=== PATIENT | male | born 1970 | race Caucasian/White ===

== ENCOUNTER → 2018-01-26 06:47 | Outpatient (CLI) | payer OTHER, SELFPAY ==
--- NOTE | 2018-01-27 08:12 | PFTCOMP_ITS ---
COMPLETE PULMONARY FUNCTION TEST INTERPRETATION Brief HPI: Patient is a 47 year old male, currently under the care of Dr. Cornell, who presents to [facility] for complete pulmonary function tests secondary to diagnosis of history of allergies. Respiratory therapist reports good effort and reproducible results. Interpretation: Forced expiration spirometry shows no large airways obstructive ventilatory defect with an FEV1 of 72% predicted. There is no significant bronchodilator response by ATS criteria. Spirograms are of good quality and plateau normally. The respiratory flow volume loop shows a normal pattern. Lung volumes by body plethysmography show a decreased total lung capacity at 5.72 L, 81% predicted. All other lung volumes are reduced symmetrically. Diffusion capacity by carbon monoxide is normal at 86% predicted. The airway resistance is normal. No previous pulmonary function tests were available for review. Impression: Mild restrictive ventilatory defect without significant reduction diffusing capacity consistent with musculoskeletal limitation.
== END ==
PROVIDERS: Family Provider Family Medicine; PCP Family Medicine; Visit Provider Family Medicine
DX: R05 Cough (principal)
CPT/HCPCS: 94060; 94726; 94729

== ENCOUNTER → 2018-03-31 20:19 | Outpatient (CLI) | payer OTHER, SELFPAY | PROVIDERS: Family Provider Family Medicine; PCP Family Medicine; Visit Provider Family Medicine | DX: G47.10 Hypersomnia, unspecified (principal) | CPT/HCPCS: 95810 ==

== ENCOUNTER → 2018-08-10 20:21 | Outpatient (CLI) | payer OTHER, SELFPAY ==
[2018-07-20 08:36] VITALS: BMI 32.8
[2018-08-10] MEDS: Zolpidem Tartrate 5 MG Tablet PO (21:10)
--- OUTSIDE RECORDS SUMMARY | 2018-09-26 22:41 | XMS RPT_ITS ---
:1970 Author Organization OHIP Care Team Providers Name Role Phone Julianne Almaraz Attending Unavailable Chang Cornell Primary Care Unavailable Julianne Almaraz Attending Unavailable Chang Cornell Referring Unavailable Aneta, Chang Attending Unavailable Aneta, Chang Primary Care Unavailable Chang Cornell Referring Unavailable Mati, Michael Attending Unavailable Aneta, Chang Referring Unavailable Aneta, Chang Attending Unavailable Aneta, Chang Primary Care Unavailable Aneta, Chang Attending Unavailable Aneta, Chang Primary Care Unavailable Julianne Almaraz Attending Unavailable Aneta, Chang Referring Unavailable PROBLEMS PROBLEMS DATE TYPE CONDITION / CODE ATTENDING STATUS SOURCE 08/10/2018 Unknown G47.33 - Almaraz, Kindra [place] Obstructive sleep Julianne [facility] (adult[facility] Hospital (pediatric) / Repository G47.33(ICD-10) 02/09/2018 Unknown R05 - Cough / MatiMichael Active [place] R05(ICD-10) Repository PROCEDURES PROCEDURES No Procedure Records FoundRESULTS RESULTS PULMONARY VISIT REPORT Observed: 09/02/2018 Status: F Source: [place] 1:09 PM [facility] RE[facility]IT[facility] Pulmonary Medicine of [address] [place] [address] OFFICE VISIT Date of Service: 09/02/18 MR#: [id number] Acct: [id number] Name: MARY JANE MEZA Rep #: [id number] : 1970 Provider: Julianne Almaraz Age/Sex: 47/M [place] [facility] [place] Status: Signed Assessment AND Plan 1. RONAK (obstructive sleep apnea) G47.33 Plan Patient is using and benefiting from Pap therapy. No indication for titration study at this time. Continue to encourage weight loss. Contact the office for any new or worsening symptoms in the meantime. Follow-up is as scheduled. 2. Obesity (BMI 30.0-34.9) E66.9 Plan Continue to encourage weight loss. 3. PND (post-nasal drip) R09.82 Plan New. Add [id number] Flonase 2 sprays each nostril 1 hour before bedtime. Hope that this will decrease his postnasal drip and therefore improve his frequent nonproductive cough. Follow-up with Dr. Thorne as previously scheduled. Contact the office with any new or worsening symptoms. Plan Detail Other Medications New: HPI 6 wk FU: Chief Complaint: Daytime hypersomnia HPI Comments Details: This is a 47 year old M, here to follow up for sleep apnea. Current use of pressure support therapy is on average of 7 hours per night with current settings of 14/10 [id number] a backup respiratory rate of 10 breaths/min. Last sleep study was completed on August 10, 2018. It noted a PLMS index of 16.5 events per hour. Suggested that the patient be treated with a BiPAP of 14/10 with a backup rate of 10. MARY JANE denies any daytime somnolence, dry mouth in the morning, nocturia, snoring through the mask, morning headaches or difficulty with mask leaks. He has only been on therapy for 4 days but has already noticed a difference, he is feeling rested and refreshed. MARY JANE reports feeling rested in the morning and is benefitting from current therapy. Compliance report was reviewed and shows 100% compliance since set up, average use is 7 hours nightly, AHI is controlled at an average of 2.7 events per hour and leaks do not appear to be a problem. Denies any shortness of breath. He does have a frequent nonproductive cough, denies any sputum production or hemoptysis. He denies any fever, chills or body aches. He denies any wheezing, chest tightness, chest pain or palpitations. He did add Zyrtec which helped with the sputum production he was previously experiencing but did not completely resolve the cough. Intake Vital Signs09/02/18 Height 5 ft 11 in 09/02/18 Weight: 235 lb Intake Visit Reasons: 6 wk FU [facility] [place] Vendor: RICH Accompanied by: Self Allergies lisinopril Adverse Reaction (Mild, Verified 09/02/18 11:58) Cough Penicillins Adverse Reaction (Mild, Verified 09/02/18 11:58) Itching Medications amlodipine 5 mg tablet 5 mg PO DAILY 07/20/18 [History Confirmed 09/02/18] cyclobenzaprine 10 mg tablet 10 mg PO HS tab 07/20/18 [History Confirmed 09/02/18] triamcinolone acetonide 55 mcg nasal spray aerosol 2 spray INTRANASAL DAILY 07/20/18 [History Confirmed 09/02/18] cetirizine 10 mg capsule 10 mg PO DAILY 09/02/18 [History Confirmed 09/02/18] [facility] Medical History Carpal tunnel syndrome, bilateral (Chronic) Claustrophobia (Chronic) Essential (primary) hypertension (Chronic) GERD (gastroesophageal reflux disease) (Chronic) Nocturnal hypoxia (Chronic) RONAK (obstructive sleep apnea) (Chronic) TMJ syndrome (Chronic) Surgical History History of dental surgery (Resolved) History of tonsillectomy (Resolved) Family History Father Colon cancer Grandfather Colon cancer Grandmother COPD (chronic obstructive pulmonary disease) Social History Smoking Status: Never smoker alcohol intake: never substance use type: does not use Review of Systems Const CONSTITUTIONAL: Negative anorexia, body ache, chills, daytime sleepiness, fever(s), night sweats, oral thrush, stops breathing during sleep, weight loss, sleeping in chair, fatigue, weight loss, weight gain, frequent colds, seasonal allergies, other, headache(s) or orthopnea EETM Ear Nose Throat Mouth: Positive hearing normal and post nasal drip; negative hard of hearing, hoarseness, dry mouth in morning, change in vision, itchy eyes, eye pain, swallowing Difficulty, ear pain, nose bleed, headache(s), mouth pain, nasal congestion, nasal discharge, sinus pain, sinus pressure, sore throat or other Cardio Cardiovascular: Negative chest pain, chest pain at rest, chest pain with activity, irregular heart rhythm, edema, shortness of breath when lying down, palpitations, murmur or other Resp Respiratory: Positive as per HPI and cough cough: Positive non-productive (X2 weeks ); negative shortness of breath, pain with cough, wheezing, chest congestion, chest tightness, pain on inspiration, inhalers, increase use of rescue inhalers, snoring, apnea or other Gastro Gastrointestional: Negative bloody stools, change in appetite, difficulty swallowing, reflux, hematemesis, melena stool, loose stool, constipation or other Genitourinary: Negative blood in urine, nocturia, pain with urination or other Musc Musculoskeletal: Negative body pain, back pain, neck pain or other Skin/Breast Skin/Breast: Negative dry skin, itching, rash, unusual bruising, breast lump or other Neuro Neurological: Negative restless legs, confusion, weakness or other Psych Psychocological: Negative abnormal sleep pattern, anxiety, thoughts of hurting self/others, hopelessness or other Lymph Lymphatic: Negative easy bleeding, easy bruising, swollen lymph nodes or other Exam Const Constitutional: Positive conversant, cooperative, in no acute respiratory distress, healthy appearing, well developed, well nourished and good hygiene Head Head: Positive normocephalic and atraumatic; negative cyanosis of lips/distal nose Eyes Eye: Positive clear conjunctiva; negative nystagmus or scleral abnormality Ears Ear: Positive hearing normal and external ears normal; negative hard of hearing Nose Nose: Positive external nose normal and no nasal discharge; negative epistaxis Mouth Mouth: Positive post nasal drip, oral mucosae normal, no lesions, good dentition and crowded posterior oropharynx; negative malodorous breath or oral thrush present Mallampati Score: III: Mallampati Score Neck Neck: Positive normal visual inspection, full ROM and trachea midline; negative lymphadenopathy, JVD or tender Chest Wall Chest: Positive normal inspection of the chest and symmetric chest movement; negative increased A/P diameter Resp lung sounds: Positive clear to auscultation, good air exchange, normal expiratory time and normal respiratory effort; negative diminished, wheezes, rhonchi, rales, dullness to percussion or wheeze present on forced exhalation Cardio Cardiac: Positive regular rate, regular rhythm, S1 normal and S2 normal; negative murmur GI GI: Positive normal to inspection; negative distended Genitourinary: Positive deferred Musc Musculoskeletal: Positive steady gait and ROM normal; negative kyphosis or scoliosis Skin Pulmonary Skin Exam: Positive intact; negative rash Pulses Pulse: Yes pulses normal x4 extremities Extremities Extremities: Yes capillary refill normal, No clubbing, No cyanosis, No edema Neuro Neurologic: Yes conversant, Yes no focal neuro deficits, Yes normal concentration, Yes understands questions, Yes cooperative, Yes normal cognition, Yes normal coordination, No tremor Lymph Lymphatic: No lymphadenopathy, No tenderness, No cervical adenopathy Psych Appearance: Positive grossly normal, eye contact and well kempt Mental Status: Positive mental status grossly normal Mood: Positive congruent mood Affect: Positive normal affect Coding Level of Care Code Off vis,est,level 4 Diagnoses RONAK (obstructive sleep apnea) G47.33 Obesity (BMI 30.0-34.9) E66.9 PND (post-nasal drip) R09.82 09/02/18 1309 <Electronically signed by Julianne Almaraz [employer]> Date Julianne Almaraz [employer] Cosigner Signature: Date (if applicable) CC: Chang Cornell DO CBC W/DIFF, AUTOMATED Collected: 09/01/2018 Status: F Source: [place] 8:06 AM [facility] REPOSITORY TYPE CODE TESTS RESULT OUT OF RANGE REFERENCE UNITS LAB L100.1000 4.4-11.0 K/mm3 Normal WBC 6.3 LAB L100.1200 4.6-6.2 M/mm3 Normal RBC 5.20 LAB L100.1300 13.0-16.5 g/dl Normal HGB 15.8 LAB L100.1400 40-54 % Normal HCT 48.1 LAB L100.1500 80-94 fL Normal MCV 92.5 LAB L100.1600 27.0-32.0 pg Normal MCH 30.4 LAB L100.1700 32-36 g/gl Normal MCHC 32.8 LAB L100.1810 11.6-14.6 % Normal RDW CV 13.3 LAB L100.1820 35.1-43.9 fl High RDW SD 45.0 LAB L100.1900 150-450 K/mm3 Normal PLT 213 LAB L100.2000 6.2-12.0 fl Normal MPV 9.5 LAB L100.2100 47-70 % Low NEUT% 45.1 LAB L100.2200 19-41 % High LY% 41.8 LAB L100.2300 0-10 % Normal MONO% 9.7 LAB L100.2400 0-5 % Normal EO% 2.8 LAB L100.2500 0-1 % Normal BASO% 0.3 LAB L100.2550 0.0-0.9 % Normal IM GRAN % 0.300 Result Comment: IG% - Immature Granulocytes (promyelocytes, myelocytes and metamyelocytes) > 1% indicates that a LEFT SHIFT is Present. LAB L100.2620 2.0-7.7 X10 3/uL Normal Absolute Neut 2.9 LAB L100.2720 0.83-4.51 X10 3/ul Normal Absolute Lymph 2.64 Performed By: #### L100.0100 #### [facility] [address] [place], [address] COMPREHENSIVE METABOLIC Collected: 09/01/2018 Status: F Source: [place] 8:06 AM [facility] REPOSITORY TYPE CODE TESTS RESULT OUT OF RANGE REFERENCE UNITS LAB L501.0100 74-106 mg/dL Normal GLU 91 Result Comment: Please note revised GLUCOSE reference range effective 2017. LAB L501.1000 7-18 mg/dL Normal BUN 12 LAB L501.1100 0.70-1.30 mg/dL Normal CREAT,SERUM 1.07 Result Comment: The validity of the calculated GFR AND GFRAA in patients over 70 years has not been determined. Clinical correlation is essential. LAB L501.1110 >60 mL/min Normal EST GFR 78 Result Comment: Non- GFR Calc LAB L501.1115 >60 mL/min Normal EST GFR - AA 95 Result Comment: GFR Calc LAB L501.1300 10-20 RATIO Normal BUN/CRE 11.2 LAB L501.1500 6.4-8.2 g/dL T Normal PROT 7.5 LAB L501.1800 3.2-5.0 g/dL Normal ALB 4.0 LAB L501.1950 2.2-4.2 g/dL Normal GLOB 3.5 LAB L501.2000 0.9-2.4 RATIO Normal A/G 1.1 LAB L501.2200 8.5-10.1 mg/dL Low CA 8.4 LAB L501.4100 15-37 U/L Low AST 12 LAB L501.4305 45-117 U/L Normal ALK P 63 LAB L501.4405 16-61 U/L Normal ALT 34 LAB L501.4600 0.20-1.00 mg/dL T Normal BILI 0.40 LAB L501.5300 136-145 mmol/L NA Normal 139 LAB L501.5600 3.5-5.1 mmol/L K Normal 4.0 LAB L501.5900 98-107 mmol/L CL Normal 105 LAB L501.6100 21.0-32.0 mmol/L Normal CO2 27.0 LAB L501.6200 5-15 Normal GAP 7 Performed By: #### L500.4050, L500.4100 #### [facility] [address] [place], [address] LIPID PROFILE Collected: 09/01/2018 Status: F Source: [place] 8:06 AM [facility] REPOSITORY TYPE CODE TESTS RESULT OUT OF RANGE REFERENCE UNITS LAB L501.4900 200 mg/dL Normal CHOL 193 Result Comment: <200 mg/dL Desirable 200-240 mg/dL Borderline >240 mg/dL High Risk LAB L501.5000 mg/dL Normal TRIG 170 Result Comment: The drugs N-Acetylcysteine and Metamizole may falsely depress this assay. Serum Triglycerides Reference Interval Normal <150 mg/dL Borderline high 150 - 199 mg/dL High 200 - 499 mg/dL Very High > or = 500 mg/dL LAB L501.6400 mg/dL Low HDL 39 Result Comment: The drugs N-Acetylcysteine and Metamizole may falsely depress this assay. Reference Range HDL <40 mg/dL Low HDL Cholesterol HDL >or= 60 mg/dL High HDL Cholesterol LAB L501.6500 0-130 mg/dL Normal LDL 120 LAB L501.6600 5-40 mg/dL Normal VLDL 34 Performed By: #### L500.4050, L500.4100 #### [facility] [address] [place], [place], [address] PULMONARY VISIT REPORT Observed: 07/20/2018 Status: F Source: [place] 9:50 AM [facility] REPOSITORY [facility] [place] [id number] [place] [address] OFFICE VISIT Date of Service: 07/20/18 MR#: [id number] Acct: [id number] Name: SUSANAMARY JANE Pia Rep #: [id number] : 1970 Provider: Julianne Almaraz Age/Sex: 47/M [place] [facility] [place] Status: Signed Assessment AND Plan 1. RONAK (obstructive sleep apnea) G47.33 Plan New. Lengthy discussion about the pathophysiology of obstructive sleep apnea, risks of untreated sleep apnea and the benefits of treatment. The patient is agreeable to a titration study. Educated him that initially the goal will be to wear the device at least 4 hours nightly, but ultimately should be 1 any time spent sleeping. Encouraged him to contact the office with any difficulties acclimating to Pap therapy. Follow-up in 6 weeks with myself, follow-up with Dr. Thorne in 4 months. Orders Orders: 2. Hypertension, unspecified type I10 Plan Defer management to PCP. Discussed relationship between untreated sleep apnea and hypertension. Plan Detail Other Medications New: Follow Up 6 Weeks (CSM) 4 Months (BWA) HPI RONAK: Chief Complaint: Daytime hypersomnia HPI Comments Details: This patient presents to the office today for initial consultation regarding concern for obstructive sleep apnea. He is ambulatory and currently in room air. He reports that he was diagnosed with sleep apnea approximately 10 years ago and attempted CPAP therapy for several months. He had difficulty acclimating to the Pap mask and pressure. He reports that he deals with claustrophobia when attempting to wear the mask. He is currently experiencing persistent daytime hypersomnia, reports that he is known for falling asleep easily when sitting still. He currently snores and has had witnessed episodes of apnea he denies any episodes of nocturia apparently he does not feel rested upon arising in the morning. He naps 1-2 times daily. He has recently began to notice that he feels short of breath when climbing stairs. He denies any chest pain or palpitations. He denies any lower extremity edema. He denies any cough, sputum production or hemoptysis. He is never been a smoker, has never been diagnosed with asthma or COPD. He is never been treated with any inhalers. He currently works as an cloud engineer and reports difficulty with daytime fatigue when sitting still at his desk. Polysomnogram completed on March 31, 2018 interpreted as showing an overall AHI of 65.6 events per hour, noted to be significantly higher in the REM stage of sleep at 77.3 events per hour, in the supine position noted to be 55.9 events per hour. Interpretation is severe obstructive sleep apnea with nocturnal hypoxia and a CPap titration study was recommended. Intake Vital Signs07/20/18 Height 5 ft 11 in 07/20/18 Weight: 235 lb Intake Visit Reasons: RONAK Lap Polisher Required: No Accompanied by: Self Is patient in pain?: No Allergies lisinopril Adverse Reaction (Mild, Verified 07/20/18 07:22) Cough Penicillins Adverse Reaction (Mild, Verified 07/20/18 07:22) Itching Medications amlodipine 5 mg tablet 5 mg PO DAILY 07/20/18 [History Confirmed 07/20/18] cyclobenzaprine 10 mg tablet 10 mg PO HS tab 07/20/18 [History Confirmed 07/20/18] triamcinolone acetonide 55 mcg nasal spray aerosol 2 spray INTRANASAL DAILY 07/20/18 [History Confirmed 07/20/18] [facility] Medical History Carpal tunnel syndrome, bilateral (Chronic) Claustrophobia (Chronic) Essential (primary) hypertension (Chronic) GERD (gastroesophageal reflux disease) (Chronic) Nocturnal hypoxia (Chronic) RONAK (obstructive sleep apnea) (Chronic) TMJ syndrome (Chronic) Surgical History History of dental surgery (Resolved) History of tonsillectomy (Resolved) Family History Father Colon cancer Grandfather Colon cancer Grandmother COPD (chronic obstructive pulmonary disease) Social History Smoking Status: Never smoker alcohol intake: never substance use type: does not use Review of Systems Const CONSTITUTIONAL: Negative anorexia, body ache, chills, daytime sleepiness, fever(s), night sweats, oral thrush, stops breathing during sleep, weight loss, sleeping in chair, fatigue, weight loss, weight gain, frequent colds, seasonal allergies, other, headache(s) or orthopnea EETM Ear Nose Throat Mouth: Positive hearing normal; negative hard of hearing, hoarseness, dry mouth in morning, change in vision, itchy eyes, eye pain, swallowing Difficulty, ear pain, nose bleed, headache(s), mouth pain, nasal congestion, nasal discharge, post nasal drip, sinus pain, sinus pressure, sore throat or other Cardio Cardiovascular: Negative chest pain, chest pain at rest, chest pain with activity, irregular heart rhythm, edema, shortness of breath when lying down, palpitations, murmur or other Resp Respiratory: Positive as per HPI; negative shortness of breath, pain with cough, wheezing, chest congestion, cough, chest tightness, pain on inspiration, inhalers, increase use of rescue inhalers, snoring, apnea or other Gastro Gastrointestional: Negative bloody stools, change in appetite, difficulty swallowing, reflux, hematemesis, melena stool, loose stool, constipation or other Genitourinary: Negative blood in urine, nocturia, pain with urination or other Musc Musculoskeletal: Negative body pain, back pain, neck pain or other Skin/Breast Skin/Breast: Negative dry skin, itching, rash, unusual bruising, breast lump or other Neuro Neurological: Negative restless legs, confusion, weakness or other Psych Psychocological: Negative abnormal sleep pattern, anxiety, thoughts of hurting self/others, hopelessness or other Lymph Lymphatic: Negative easy bleeding, easy bruising, swollen lymph nodes or other Exam Const Constitutional: Positive conversant, cooperative, in no acute respiratory distress, healthy appearing, well developed, well nourished and good hygiene Head Head: Positive normocephalic and atraumatic; negative cyanosis of lips/distal nose Eyes Eye: Positive clear conjunctiva; negative nystagmus or scleral abnormality Ears Ear: Positive hearing normal and external ears normal; negative hard of hearing Nose Nose: Positive external nose normal and no nasal discharge; negative epistaxis Mouth Mouth: Positive oral mucosae normal, no lesions, good dentition and crowded posterior oropharynx; negative post nasal drip, malodorous breath or oral thrush present Mallampati Score: III: Mallampati Score Neck Neck: Positive normal visual inspection, full ROM and trachea midline; negative lymphadenopathy, JVD or tender Chest Wall Chest: Positive normal inspection of the chest and symmetric chest movement; negative increased A/P diameter Resp lung sounds: Positive clear to auscultation, good air exchange, normal expiratory time and normal respiratory effort; negative diminished, wheezes, rhonchi, rales, dullness to percussion or wheeze present on forced exhalation Cardio Cardiac: Positive regular rate, regular rhythm, S1 normal and S2 normal; negative murmur GI GI: Positive normal to inspection; negative distended Genitourinary: Positive deferred Musc Musculoskeletal: Positive steady gait and ROM normal; negative kyphosis or scoliosis Skin Pulmonary Skin Exam: Positive intact; negative rash Pulses Pulse: Yes pulses normal x4 extremities Extremities Extremities: Yes capillary refill normal, No clubbing, No cyanosis, No edema Neuro Neurologic: Yes conversant, Yes no focal neuro deficits, Yes normal concentration, Yes understands questions, Yes cooperative, Yes normal cognition, Yes normal coordination Lymph Lymphatic: No lymphadenopathy, No tenderness, No cervical adenopathy Psych Appearance: Positive grossly normal, eye contact and well kempt Mental Status: Positive mental status grossly normal Mood: Positive congruent mood Affect: Positive normal affect Coding Level of Care Code Off vis,new,level 4 Diagnoses RONAK (obstructive sleep apnea) G47.33 Hypertension, unspecified type I10 Hypertension type: unspecified 07/20/18 0950 <Electronically signed by Julianne BALLC> Date Julianne Almaraz NP-C Cosigner Signature: Date (if applicable) CC: Chang Cornell DO PROGRESS Observed: 04/02/2018 Status: COMPLETED [place]: [place] 11:33 AM [facility] [place] [facility] ID: [id number] Author: Farhad Winchester Service: (none) Author Type: Physician Type: Progress Notes Filed: 04/02/2018 1:48 PM Note Text: Patient presents with: Laceration: LT thumb laceration HPI: Cut left thumb with a pocket knife this morning. He had bleeding. Rinsed over the thumb with water. Last tetanus booster 2007. MEDICATIONS: amLODIPine (NORVASC) 5 mg tablet Take 5 mg by mouth once daily. ALLERGIES: ALLERGIES Allergen Reactions - Penicillins Itching VITALS: BP 130/88 Pulse 95 Temp 36.8 ?C (98.3 ?F) (Tympanic) Wt 104.3 kg (230 lb) SpO2 98% BMI 32.08 kg/m? PE: Pleasant, in no acute distress. Thumb: Left. 1.5cm laceration on the dorsal distal phalange. Procedure: Site cleansed with Hibiclens and saline on gauze. Rinsed with tap water. Pressure applied to stop bleeding. Exofin skin adhesive applied in 2 layers. ASSESSMENT/PLAN: 1. Laceration of left thumb without foreign body without damage to nail, initial encounter - ICD9: 883.0, ICD10: S61.012A (primary diagnosis) 2. Need for vaccination - ICD9: V05.9, ICD10: Z23 Wound care instructions reviewed. - TDAP VACCINE AGE 7+ IM Farhad Winchester MD CNOV Observed: 04/02/2018 Status: COMPLETED Source: [place] 10:45 AM [facility] [place] Office Visit (WSTR) MARY JANE MEZA ([id number]) 1970 M Date Time Provider Department 04/02/18 10:45 AM [facility] [place] [facility] During your visit today, we recorded the following information about you: Temperature Pulse Blood pressure Weight 98.3 degrees 95/minute 130/88 104.3 kg Farhad Winchester MD 04/02/2018 1:48 PM Signed Patient presents with: Laceration: LT thumb laceration HPI: Cut left thumb with a pocket knife this morning. He had bleeding. Rinsed over the thumb with water. Last tetanus booster 2007. MEDICATIONS: amLODIPine (NORVASC) 5 mg tablet Take 5 mg by mouth once daily. ALLERGIES: ALLERGIES Allergen Reactions - Penicillins Itching VITALS: BP 130/88 Pulse 95 Temp 36.8 ?C (98.3 ?F) (Tympanic) Wt 104.3 kg (230 lb) SpO2 98% BMI 32.08 kg/m? PE: Pleasant, in no acute distress. Thumb: Left. 1.5cm laceration on the dorsal distal phalange. Procedure: Site cleansed with Hibiclens and saline on gauze. Rinsed with tap water. Pressure applied to stop bleeding. Exofin skin adhesive applied in 2 layers. ASSESSMENT/PLAN: 1. Laceration of left thumb without foreign body without damage to nail, initial encounter - ICD9: 883.0, ICD10: S61.012A (primary diagnosis) 2. Need for vaccination - ICD9: V05.9, ICD10: Z23 Wound care instructions reviewed. - TDAP VACCINE AGE 7+ IM Farhad Winchester MD Referring Provider: SELF [200] Allergies As of Date: 04/02/2018 Noted Allergy Reaction PENICILLINS 08/24/2007 9 - Itching Date Reviewed: 04/02/2018 Reviewed by: Alberta Rowe Ma - Fully Assessed Reason for Visit: Laceration [1747] Cmt: LT thumb laceration Primary Visit Diagnosis:Laceration of left thumb without foreign body without damage to nail, initial encounter [S61.012A] Other Visit Diagnosis:Need for vaccination [Z23] Order(s):TDAP VACCINE AGE 7+ IM [[id number]] Order #: [id number] Prescriptions as of 04/02/2018 Sig: AMLODIPINE 5 MG TABLET Take 5 mg by mouth once daily. Problem List As Of Date 04/02/2018 Noted Resolved Abdominal pain [R10.9] Non morbid obesity due to excess calories [E66.*INVALID FOR*03/18/2016 Family history of colon cancer [Z80.0] INVALID FOR* Irritable bowel syndrome with diarrhea [K58.0] INVALID FOR* Medications Discontinued During This Encounter mupirocin (BACTROBAN) 2 % ointment 1 Tu* 0 03/23/2016 04/02/2018 Class: Print RX Route: TOPICAL Sig: Apply 1 application to affected area once daily. Patient not taking: Reported on 04/02/2018 Disc: Course of therapy completed Encounter Status:Closed by FARHAD WINCHESTER MD on 04/02/18 PULMONARY FUNCTION Observed: 01/27/2018 Status: F Source: [place] REPORT COMP 8:12 AM [facility] REPOSITORY [facility] Pulmonary Services/Neurology [address] [place] [address] MR#: [id number] Acct: [id number] Name: SUSANAMARY JANE Pia Rep #: [id number] : 1970 47 From: Michael Thorne MD Referring Dr: Chang Cornell DO Status: REG CLI Ordering Dr: Date: Location: PSN Sex: M C COMPLETE PULMONARY FUNCTION TEST INTERPRETATION Brief HPI: Patient is a 47 year old male, currently under the care of Dr. Cornell, who presents to [facility] for complete pulmonary function tests secondary to diagnosis of history of allergies. Respiratory therapist reports good effort and reproducible results. Interpretation: Forced expiration spirometry shows no large airways obstructive ventilatory defect with an FEV1 of 72% predicted. There is no significant bronchodilator response by ATS criteria. Spirograms are of good quality and plateau normally. The respiratory flow volume loop shows a normal pattern. Lung volumes by body plethysmography show a decreased total lung capacity at 5.72 L, 81% predicted. All other lung volumes are reduced symmetrically. Diffusion capacity by carbon monoxide is normal at 86% predicted. The airway resistance is normal. No previous pulmonary function tests were available for review. Impression: Mild restrictive ventilatory defect without significant reduction diffusing capacity consistent with musculoskeletal limitation. 01/27/18811 <Electronically signed by Michael Thorne MD> Date Michael Thorne MD CC: Michael Thorne MD; Chang Cornell DO Date Dictated: 01/27/18809 Date Transcribed: 01/27/18809 Care Technician: JUAN Signed ALLERGIES ALLERGIES DATE TYPE / CODE NAME / CODE REACTION SEVERITY SOURCE 09/02/2018 Drug Penicillins/[id number] Itching [place] Allergy/416 0476(RXNORM) [facility]ly [facility] 237523([facility] CT) Repository 09/02/2018 Drug lisinopril/[id number] cough [place] Allergy/416 658(RXNORM) Formerly [facility] 643267([facility] ED CT) Repository 08/24/2007 Drug PENICILLINS ITCHING [facility] Class/[address] [place] 1003(SNOMED Repository CT) ENCOUNTERS ENCOUNTERS ADMIT/DISCHARGE ACCOUNT ADMITTING ENCOUNTER LOCATION SOURCE NUMBER CLASS 09/02/2018/09/02/19 [id number] Ambulatory BMSBuilding:B [place] 19 MS.PMW Repository 09/01/[id number] [facility] ing:LAB.FUTREBECCA Repository E 08/10/[id number] [facility] ing:SL Repository 07/20/2018/07/20/20 [id number] Ambulatory BMSBuilding:B [address] 18 MS.PMW Repository 04/02/2018/04/04/20 [id number] Ambulatory [address] Repository 03/31/[id number] [facility] ing:SL Repository 01/27/2018 [id number] Ambulatory BMSBuilding:W [place] [facility] Repository 01/26/[id number] [facility] ing:PSN Repository PAYERS PAYERS ENCOUNTER GUARANTOR PAYER SUBSCRIBER SOURCE 09/02/2018 MARY JANE Palacio Primary MARY JANE Estrada [id number] Insurance:AULTCAREPol WRIGHTDOB: [facility] icy Number: [id number] [place] [id number] Repository [address]Rly: 330) Date:9370-22-58PL [phone] () [address], [place] [address]YJ: 09/02/2018 Secondary NOT GIVENUNK [place] Insurance:SELF PAY [facility] Number: Effective Repository Date:2018-08-31 09/01/2018 MARY JANE Palacio Primary MARY JANE Estrada [id number] Insurance:AULTCAREPol [facility] Number: [id number] [place], [place] [id number] Repository [address]Dub: (330) Date:5944-54-80BH [phone] () [address], [place] [address]TQ: 09/01/2018 Secondary NOT GIVENUNK [place] Insurance:SELF PAY [facility] Number: Effective Repository Date:2018-03-04 08/10/2018 MARY JANE Palacio Primary MARY JANE Estrada [id number] Insurance:AULTCAREPol WRIGHTDOB: [facility] Number: [id number] [place] [id number] Repository [address]Ibn: (330) Date:7635-91-80LC [phone] () [address] [address]LY: 08/10/2018 Secondary NOT GIVENUNK Sean Insurance:SELF PAY [facility]: Effective Repository Date:2018-07-22 07/20/2018 MARY JANE Palacio Primary MARY JANE Estrada [id number] Insurance:AULTCAREPol WRIGHTDOB: [facility] icy Number: [id number] [place], [place] [id number] Repository [address]Xbj: (330) Date:9442-20-17DE [phone] () [address], [place] [address]XT: 07/20/2018 Secondary NOT GIVENUNK [place] Insurance:SELF PAY [facility] Number: Effective Repository Date:2018-07-13 03/31/2018 Mary Jane Palacio Primary Mary Jane Estrada [id number] Insurance:AULTCAREPol WrightDOB: Community [place] icy Number: [id number] [place], [place] [id number] Repository [address]Kxc: (330) Date:2693-25-54NQ [phone] () [address] [place] [address]HY: 03/31/2018 Secondary NOT GIVENUNK [place] Insurance:SELF PAY [facility] Number: Effective Repository Date:2018-03-17 01/27/2018 Mary Jane Palacio Primary Mary Jane Estrada [id number] Insurance:AULTCAREPol WrightDOB: Community [facility] icy Number: [id number] [place], [place] [id number] Repository [address]Dol: (330) Date:8667-89-42HV [phone] () [address], [place] [address]OV: 01/27/2018 Secondary NOT GIVENUNK [place] Insurance:SELF PAY [facility] Number: Effective Repository Date:2018-01-27 01/26/2018 Mary Jane Palacio Primary Mary Jane Estrada [id number] Insurance:AULTCAREPol WrightDOB: Community [place] icy Number: [id number] [place], [place] [id number] Repository [address]Fnk: (330) Date:6829-42-78WT [phone] ( [address], [place] [address]PB: 01/26/2018 Secondary NOT GIVENUNK [place] Insurance:SELF PAY [facility] Number: Effective Repository Date:2017-12-24
== END ==
PROVIDERS: Family Provider Family Medicine; PCP Family Medicine; Visit Provider Nurse Practitioner Acute Care
DX: G47.33 Obstructive sleep apnea (adult) (pediatric) (principal)
CPT/HCPCS: 95811

== ENCOUNTER → 2018-09-01 08:01 | Outpatient (CLI) | payer OTHER, SELFPAY ==
[2018-07-20 08:36] VITALS: BMI 32.8
[2018-09-01 12:29] LABS: Absolute Lymphocyte Count 2.64 X10^3/ul (0.83-4.51); Absolute Neutrophil Count 2.9 X10^3/uL (2.0-7.7); Basophil# 0.02 X10^3/uL; Basophil% 0.3 % (0-1); Eosinophil# 0.18 X10^3/uL; Eosinophils% 2.8 % (0-5); Hematocrit 48.1 % (40-54); Hemoglobin 15.8 g/dl (13.0-16.5); Lymphocyte # 2.64 X10^3/ul (4.0); Lymphocyte % 41.8 % (19-41); Mean Corp Hgb Conc 32.8 g/gl (32-36); Mean Corpuscular Hgb 30.4 pg (27.0-32.0); Mean Corpuscular Volume 92.5 fL (80-94); Mean Platelet Vol. 9.5 fl (6.2-12.0); Monocyte# 0.61 X10^3/uL; Monocyte% 9.7 % (0-10); Neutrophil # 2.85 X10^3/uL (2.7-7.7); Neutrophil % 45.1 % (47-70); Platelet Count 213 K/mm3 (150-450); RBC Distribution Width CV 13.3 % (11.6-14.6); White Blood Count 6.3 K/mm3 (4.4-11.0)
[2018-09-01 12:30] LABS: POSITIVE COUNT NO; POSITIVE DIFFERENTIAL NO; POSITIVE MORPHOLOGY NO
[2018-09-01 12:42] LABS: ALB/GLOB Ratio 1.1 RATIO (0.9-2.4); AST(SGOT) 12 U/L (15-37); Alanine Aminotransfer ALT/SGPT 34 U/L (16-61); Alkaline Phosphatase 63 U/L (45-117); Anion Gap 7 (5-15); BUN 12 mg/dL (7-18); BUN/Creat Ratio 11.2 RATIO (10-20); Calcium,Total 8.4 mg/dL (8.5-10.1); Chloride 105 mmol/L (98-107); Cholesterol 193 mg/dL (200); Creatinine, Serum 1.07 mg/dL (0.70-1.30); EST Glomerular Filtration Rate 78 mL/min (>60); Est Glom Filt Rate - Afr Amer 95 mL/min (>60); Globulin 3.5 g/dL (2.2-4.2); Glucose 91 mg/dL (74-106); High Density Lipoprotein 39 mg/dL; Protein, Total 7.5 g/dL (6.4-8.2); Sodium Level 139 mmol/L (136-145); Triglycerides 170 mg/dL; Very Low Density Lipoprotein 34 mg/dL (5-40)
== END ==
PROVIDERS: Family Provider Family Medicine; PCP Family Medicine; Visit Provider Family Medicine
DX: I10 Essential (primary) hypertension (principal); R53.83 Other fatigue
CPT/HCPCS: 36415; 80053; 80061; 85025

== ENCOUNTER → 2018-10-26 10:17 | Outpatient (CLI) | payer OTHER, SELFPAY ==
[2018-07-20 08:36] VITALS: BMI 32.8
[2018-09-02 12:38] VITALS: BMI 32.8
--- NOTE | 2018-10-26 11:50 | NEURO_ITS ---
NCS and/or EMG Patient Report Ordering Doctor: Duy Johnson DATE OF SERVICE: 10/26/18 Sander Charlton is a 48-year-old male who presents for electrodiagnostic testing of the upper limbs. 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 Electrodiagnostic findings: Right median motor nerve demonstrates prolonged distal latency with normal amplitude and conduction velocity. The left median motor nerve demonstrates prolonged distal latency with normal amplitude and conduction velocity. Normal ulnar motor response bilaterally. Prolonged median sensory latencies bilaterally at the wrist. Prolonged median palmar latency bilaterally. Normal ulnar and radial sensory responses. Needle EMG testing shows no evidence of denervation in any muscles tested. Motor unit action potentials were of normal amplitude and duration without polyphasic activity. Electrodiagnostic impression: This is an abnormal study in the upper limbs. 1. Electrodiagnostic findings demonstrate bilateral median mononeuropathy. This consistent with a moderate bilateral carpal tunnel syndrome. If there are any further questions, please do not hesitate to contact me.
== END ==
PROVIDERS: Family Provider Family Medicine; PCP Family Medicine; Referring Provider Orthopaedic Surgery; Visit Provider Orthopaedic Surgery
DX: G56.03 Carpal tunnel syndrome, bilateral upper limbs (principal)
CPT/HCPCS: 95886; 95912

== ENCOUNTER → 2018-10-31 12:20 | Outpatient (CLI) | payer OTHER, SELFPAY ==
[2018-09-02 12:38] VITALS: BMI 32.8
--- NOTE | 2018-10-31 12:23 | STEWCON_ITS ---
Reason For Study: Dyspnea On Exertion Stress Results Protocol: Michael Protocol Maximum Predicted HR: 172 bpm Target HR: 146 bpm % Maximum Predicted HR: 90 % DurationHeart Rate Stage (mm:ss) (bpm) BP Comment Baseline 82 142/88No Chest Pain; Diluted Definity 2 ML Given Michael Protocol Stage I 3:00 113 152/76No Chest Pain Michael Protocol Stage II 3:00 131 158/72No Chest Pain; Mild Dyspnea Michael Protocol Stage III 3:00 155 178/70No Chest Pain; Moderate Dyspnea Recovery 96 132/70No Chest Pain Stress Duration: 9:00 mm:ss Maximum Stress HR: 155 bpm METS: 10 Baseline Echocardiogram Findings Stress Echo Wall motion Data Resting WM Intermediate WM Stress WM Resting Wall Motion Wall Motion Stress No regional wall motion No regional wall motion abnormalities noted. abnormalities noted. Ejection Fraction 55 %. Ejection Fraction 65 %. Interpretation Summary Exercise stress echocardiogram.. Rhythm with a rate of 83 bpm normal intervals are noted resting blood pressure 142/88 mmHg. The patient exercised according to the regular Michael protocol for total duration of 9 minutes completing stage III of the Michael protocol the maximum heart rate attained was 162 bpm which was 94% of maximum predicted heart rate the maximum workload was 10.1 metabolic equivalents. The patient maintained sinus rhythm throughout the recording. At rest there were no ST or T wave changes noted suggest ischemia at peak exercise upsloping ST changes were noted with normally the criteria for ischemia. The resting blood pressure 142/88 with a peak blood pressure 178/70 mmHg. No clinical angina was noted the test was terminated due to leg fatigue. There was mild shortness of breath noted. Stress echocardiogram. Resting and stress echocardiographic images were obtained with Definity enhancement. The resting ejection fraction was noted to be 55% with a peak ejection fraction of 65%. No obvious wall motion abnormalities were noted with this stress or at rest. Conclusion: Normal exercise stress echocardiogram at a high workload of 10 metabolic equivalents without any evidence of ischemia Normal resting and stress echocardiographic imaging. Ordering Physician: Chang Cornell Referring Physician: Noam Maddox Performed By: Anat Garza RDCS
== END ==
PROVIDERS: Family Provider Family Medicine; PCP Family Medicine; Referring Provider Family Medicine; Visit Provider Family Medicine
DX: I10 Essential (primary) hypertension (principal); R06.00 Dyspnea, unspecified; I45.10 Unspecified right bundle-branch block
CPT/HCPCS: 93017; 93350; Q9957; A4216; C8928

== ENCOUNTER → 2019-10-23 09:10 | Outpatient (CLI) | payer OTHER, SELFPAY ==
[2018-11-08 12:41] VITALS: BMI 33.7
[2019-10-23 10:23] LABS: Absolute Lymphocyte Count 2.21 X10^3/uL (0.83-4.51); Absolute Neutrophil Count 3.2 X10^3/uL (2.0-7.7); Basophil# 0.07 X10^3/uL; Basophil% 1.1 % (0-1); Eosinophil# 0.16 X10^3/uL; Eosinophils% 2.6 % (0-5); Hemoglobin 16.8 g/dL (13.0-16.5); Lymphocyte # 2.21 X10^3/ul (4.0); Lymphocyte % 35.4 % (19-41); Mean Corp Hgb Conc 33.6 g/dL (32-36); Mean Corpuscular Hgb 30.8 pg (27.0-32.0); Mean Corpuscular Volume 91.6 fL (80-94); Mean Platelet Vol. 9.3 fl (6.2-12.0); Monocyte# 0.56 X10^3/uL; NRBC Flagged by Analyzer 0 % (0-5); Neutrophil # 3.21 X10^3/uL (2.7-7.7); Neutrophil % 51.3 % (47-70); Platelet Count 245 K/mm3 (150-450); RBC Distribution Width CV 12.8 % (11.6-14.6); RBC Distribution Width SD 42.4 fl (35.1-43.9); Red Blood Count 5.46 M/mm3 (4.6-6.2); White Blood Count 6.3 K/mm3 (4.4-11.0)
[2019-10-23 10:48] LABS: ALB/GLOB Ratio 1.1 RATIO (0.9-2.4); AST(SGOT) 14 U/L (15-37); Alanine Aminotransfer ALT/SGPT 33 U/L (16-61); Albumin, Serum 4.1 g/dL (3.2-5.0); Alkaline Phosphatase 50 U/L (45-117); Anion Gap 7 (5-15); BUN 15 mg/dL (7-18); BUN/Creat Ratio 14.2 RATIO (10-20); Calcium,Total 9.2 mg/dL (8.5-10.1); Chloride 104 mmol/L (98-107); Cholesterol 220 mg/dL (200); Creatinine, Serum 1.06 mg/dL (0.70-1.30); EST Glomerular Filtration Rate 79 mL/min (>60); Est Glom Filt Rate - Afr Amer 96 mL/min (>60); Globulin 3.9 g/dL (2.2-4.2); Glucose 86 mg/dL (74-106); High Density Lipoprotein 46 mg/dL; Potassium 3.3 mmol/L (3.5-5.1); Sodium Level 140 mmol/L (136-145); Triglycerides 243 mg/dL; Very Low Density Lipoprotein 49 mg/dL (5-40)
== END ==
PROVIDERS: PCP Family Medicine; Referring Provider Family Medicine; Visit Provider Family Medicine
DX: Z00.00 Encounter for general adult medical examination without abnormal findings (principal)
CPT/HCPCS: 36415; 80053; 80061; 85025

== ENCOUNTER 2020-11-29 11:11 | Outpatient (RCR) | payer OTHER, SELFPAY ==
[2020-11-28 10:45] VITALS: BMI 33.2
== END 2021-02-04 23:59 ==
LOC: IMMUN 11:11
PROVIDERS: PCP Family Medicine; Visit Provider Family Medicine
DX: Z23 Encounter for immunization (principal)
CPT/HCPCS: 0001A; 0002A; 91300

== ENCOUNTER → 2020-12-19 11:00 | Outpatient (CLI) | payer OTHER, SELFPAY ==
[2020-11-28 10:45] VITALS: BMI 33.2
== END ==
PROVIDERS: PCP Family Medicine; Referring Provider Internal Medicine Critical Care Medicine; Visit Provider Internal Medicine Critical Care Medicine
DX: G47.33 Obstructive sleep apnea (adult) (pediatric) (principal)
CPT/HCPCS: 98960; G0463

== ENCOUNTER 2021-02-05 07:13 | Day surgery (SDC) | payer OTHER, SELFPAY ==
[2020-11-28 10:45] VITALS: BMI 33.2
[2021-02-05] VITALS (7 sets, daily range): BP systolic 90–138; BP diastolic 62–80; PULSE 72–93; RESP 16–18; TEMP 35.9–36.5; O2SAT 94–99; BMI 32.2
[2021-02-05] MEDS: Lactated Ringers 1,000 ML 100 ML IV (07:49)
--- NOTE | 2021-02-05 08:25 | HP.PCM_ITS ---
HPI - General HPI Narrative MARY JANE MEZA, is a 50 M who presents for screening colonoscopy due to family history. Patient's father and grandfather had colon cancer. Patient's last colonoscopy was about [address] Muller negative per patient. Patient denies any chronic abdominal pain/nausea/vomiting/reflux. Patient's bowel m ovements daily denies any blood PFSH Medical History (Updated 02/05/21 @ 08:[address] Aubree Riddle MD) BiPAP (biphasic positive airway pressure) dependence Carpal tunnel syndrome, bilateral Claustrophobia Essential (primary) hypertension Gastric reflux GERD (gastroesophageal reflux disease) History of stress test History of ulceration Hypertension Nocturnal hypoxia Non-smoker RONAK (obstructive sleep apnea) TMJ syndrome Wears glasses Wears partial dentures Home Medications amlodipine 5 mg tablet 5 mg PO DAILY 07/20/18 [History Last Taken 02/05/21 04:30] hydrochlorothiazide 50 mg tablet 50 mg PO DAILY 11/09/19 [History Last Taken 02/04/21 06:30] fluticasone propionate [Flonase Allergy Relief] 1 spray INTRANASAL DAILY PRN 02/03/21 [History Last Taken 02/04/21 06:30] levocetirizine [Xyzal] 5 mg PO DAILY 02/03/21 [History Last Taken 02/02/21 06:00] Allergy/AdvReac Type Severity Reaction Status Date / Time lisinopril AdvReac Mild Cough Verified 02/05/21 07:40 Penicillins AdvReac Mild Itching Verified 02/05/21 07:40 Family History Father Colon cancer Grandfather Colon cancer Grandmother COPD (chronic obstructive pulmonary disease) Surgical History History of dental surgery History of tonsillectomy Social History (Updated 11/28/20 @ 11:[address] Michael Thorne MD) Smoking Status: Never smoker alcohol intake: never substance use type: does not use Past Medical/Surgical History Planned Operation Planned Operative Procedure/s: CSCOPE OPEN ACCESS Previous Hospitalizations/Surgeries HX Hospitalizations: No Any Problems With Anesthesia: No You/Your Family Experience Fever (Hyperthermia) With Anes: No Cholinesterase deficiency: No Cardiovascular Hx Hypertension: Yes (CONTROLLED WITH MED) Respiratory Hx Sleep Apnea: Yes CPAP: No BIPAP: Yes Hx Respiratory Tract Infection/Cold (presently): No Result (for STOP score): Positive Smoking Status: Never smoker Neurological Does patient have nerve stimulator: No Reproduction : No Miscellaneous Recent Exposure to Contagious Disease: No Allergies lisinopril Adverse Reaction (Mild, Verified 02/05/21 07:40) Cough Penicillins Adverse Reaction (Mild, Verified 02/05/21 07:40) Itching Discharge Is Pt Admitted From a Penitentiary, or a Longterm: No After D/C, Where Do you Plan to Go: Return Home Vital Signs Vital Signs Vital Signs: 02/05/21 07:44 Temperature 97.7 F L Temperature Source Temporal Pulse Rate 93 Respiratory Rate 18 Respiratory Pattern Normal Blood Pressure 138/80 H Blood Pressure Mean 99 Blood Pressure Source Monitor Blood Pressure Position Sitting Blood Pressure Location Left Arm Pulse Ox 99 Oxygen Delivery Method Room Air Weight Weight: 231 lb Body Mass Index (BMI) 32.2 Physical Exam Const alert, oriented x3 and no apparent distress HEENT normocephalic and head/scalp atraumatic Resp normal respiratory effort Cardio regular rate GI soft to palpation and non-tender; Negative for non-distended Palpation: Negative for guarding Extremity no clubbing, cyanosis or edema Neuro CN's II-XII intact bilaterally Psych mental status grossly normal Assessment & Plan Assessment/Plan (1) Family history of colon cancer: Procedure Criteria Type of Procedure Procedure Type: Elective Elective Risks - COVID COVID Risk Discussion: The surgeon/proceduralist and patient have discussed in detail the risk of exposure to and/or potential harm posed by the COVID-19 virus with having a surgery/procedure at this time versus the risk of delaying the surgery/procedure. It is not possible to know either the risk of delaying the surgery or procedure or chance of getting an infection with perfect accuracy, but a joint decision was made between the patient and the surgeon/proceduralist to proceed at this time with the scheduled surgery/procedure as indicated on the consent form. Surgery Risks - Colonoscopy Risks Include but are not Limited To: Risks include but are not limited to: Bleeding, perforation requiring further surgery, inability to complete colonoscopy requiring barium enema. Patient no further question this time
--- NOTE | 2021-02-05 08:30 | COLBX_PTH ---
PATIENT: MARY JANE MEZA LOC: EN U#:[id number] AGE/SX: 50/M ROOM: RE02/05/[address]: Dr. Aubree Riddle MD : 1970 BED: DIS: 02/05/2021 SPEC #: [id number] RECD: 02/05/21 10:52 STATUS: DONNA LORI #: [id number] PETR: 02/05/21 08:[address]: Aubree Riddle DEPT: SURGICAL PATHOLOGY RECD BY: Christie Hameed ENTERED: 02/05/21 11:16 SP TYPE: COLON BX OTHR DR: Dr. Chang Cornell, Tissues: A - COLON BIOPSY B - Sigmoid colon biopsy Procedures: Surgery Specimen Level IV HEADER OPERATION: Colonoscopy ? open access (MAC) PRE-OP DIAGNOSIS: Family history colon cancer TISSUE SUBMITTED: A ? Hepatic flexure biopsy, B ? Sigmoid polyp MICROSCOPIC DIAGNOSIS A. Colon at hepatic flexure, biopsy: Tubular adenoma. B. Sigmoid colon polyp, biopsy: Tubular adenoma. AM:yesica 02/06/2021 MICROSCOPIC DESCRIPTION Slides are reviewed. GROSS DESCRIPTION A - Received in fixative is one container labeled with the patient's name and designated hepatic flexure biopsy. The specimen consists of two irregular fragments of light stevenson soft tissue that in aggregate measure 0.3 x 0.2 x 0.1 cm. The specimen is totally submitted in one cassette. B - Received in fixative is one container labeled with the patient's name and designated sigmoid polyp. The specimen consists of one irregular fragment of light stevenson soft tissue that measures 0.6 x 0.3 x 0.1 cm. The specimen is totally submitted in one cassette. / AM:yesica 02/05/21 TC:5 CPT: 81395 x2
--- NOTE | 2021-02-05 09:14 | OP.COLON_ITS ---
Patient Name: Sander Charlton Procedure Date: 02/05/2021 8:35 AM Date of : 1970 Age: 50 Procedure: Colonoscopy Indications: Screening in patient at increased risk: Family history of 1st-degree relative with colorectal cancer, Colon cancer screening in patient at increased risk: Family history of colorectal cancer in multiple 2nd degree relatives Providers: Aubree Riddle MD Referring MD: Aubree Riddle MD Medicines: Monitored Anesthesia Care Patient Profile: This is a 50 year old male. Last Colonoscopy: 6 years ago. Complications: No immediate complications. Procedure: Pre-Anesthesia Assessment: - Prior to the procedure, a History and Physical was performed, and patient medications and allergies were reviewed. The patient's tolerance of previous anesthesia was also reviewed. The risks and benefits of the procedure and the sedation options and risks were discussed with the patient. All questions were answered, and informed consent was obtained. Prior Anticoagulants: The patient has taken no previous anticoagulant or antiplatelet agents. ASA Grade Assessment: Per anesthesia. After reviewing the risks and benefits, the patient was deemed in satisfactory condition to undergo the procedure. After I obtained informed consent, the scope was passed under direct vision. Throughout the procedure, the patient's blood pressure, pulse, and oxygen saturations were monitored continuously. The pediatric colonoscope was introduced through the anus and advanced to the cecum, identified by the appendiceal orifice, ileocecal valve and palpation. The colonoscopy was performed without difficulty. The patient tolerated the procedure well. The quality of the bowel preparation was good. Scope In: 8:42:15 AM Scope Withdrawal Time 0 hours 15 minutes 8 seconds Scope Out: 9:06:00 AM Total Procedure Duration Time 0 hours 23 minutes 45 seconds Findings: The perianal and digital rectal examinations were normal. A less than 5 mm polyp was found in the hepatic flexure. The polyp was sessile. The polyp was removed with a cold biopsy forceps. Resection and retrieval were complete. A less than 5 mm polyp was found in the sigmoid colon. The polyp was semi-pedunculated. The polyp was removed with a hot snare. Resection and retrieval were complete. The exam was otherwise without abnormality on direct and retroflexion views. Impression: - One less than 5 mm polyp at the hepatic flexure, removed with a cold biopsy forceps. Resected and retrieved. - One less than 5 mm polyp in the sigmoid colon, removed with a hot snare. Resected and retrieved. - The examination was otherwise normal on direct and retroflexion views. Recommendation: - Discharge patient to home. - Resume previous diet. - Continue present medications. - Await pathology results. - Repeat colonoscopy in 3 years for surveillance based on pathology results. Procedure Code(s): --- Professional --- 69642, Colonoscopy, flexible; with removal of tumor(s), polyp(s), or other lesion(s) by snare technique 66485, 59, Colonoscopy, flexible; with biopsy, single or multiple Diagnosis Code(s): --- Professional --- D12.3, Benign neoplasm of transverse colon (hepatic flexure or splenic flexure) D12.5, Benign neoplasm of sigmoid colon Z80.0, Family history of malignant neoplasm of digestive organs CPT copyright 2017 [employer]. All rights reserved. The codes documented in this report are preliminary and upon death surveys coder review may be revised to meet current compliance requirements. MD Aubree Castle MD 02/05/2021 9:14:32 AM This report has been signed electronically. Number of Addenda: 0 Note Initiated On: 02/05/2021 8:35 AM
--- NOTE | 2021-02-05 09:15 | OP.CCLET_ITS ---
02/05/2021 Chang Cornell [address] [place] [address] Re : Colonoscopy procedure for Sander Charlton Dear Dr. Cornell This procedure was performed on Friday, February 05, 2021. My impressions and recommendations are as follows: Impressions : - One less than 5 mm polyp at the hepatic flexure, removed with a cold biopsy forceps. Resected and retrieved. - One less than 5 mm polyp in the sigmoid colon, removed with a hot snare. Resected and retrieved. - The examination was otherwise normal on direct and retroflexion views. Recommendations : - Discharge patient to home. - Resume previous diet. - Continue present medications. - Await pathology results. - Repeat colonoscopy in 3 years for surveillance based on pathology results. My findings are described in the full procedure note, which is enclosed. If I can be of further assistance, please feel free to contact me at Doctor phone number(s): , Work: . Sincerely, MD Aubree Castle MD 02/05/2021 9:14:32 AM This report has been signed electronically.
== END 2021-02-05 09:48 ==
LOC: EN 07:13 → AC 07:15
PROVIDERS: PCP Family Medicine; Referring Provider Surgery; Visit Provider Surgery
PROC: 0DJD8ZZ Inspection of Lower Intestinal Tract, Via Natural or Artificial Opening Endoscopic (ICD-10-PCS; CPT 45378; principal; 2021-02-05 08:25)
DX: Z12.11 Encounter for screening for malignant neoplasm of colon (principal); D12.3 Benign neoplasm of transverse colon; D12.5 Benign neoplasm of sigmoid colon; I10 Essential (primary) hypertension; G56.03 Carpal tunnel syndrome, bilateral upper limbs; K21.9 Gastro-esophageal reflux disease without esophagitis; G47.33 Obstructive sleep apnea (adult) (pediatric); F40.240 Claustrophobia; Z80.0 Family history of malignant neoplasm of digestive organs; Z79.899 Other long term (current) drug therapy; Z88.0 Allergy status to penicillin
CPT/HCPCS: 45380; 45385; 88305; J7120; J2405

== ENCOUNTER → 2022-01-21 | Outpatient (CLI) | payer BC, SELFPAY ==
[2022-01-21 11:44] LABS: Color, Urine Yellow (Yellow); Glucose, Dipstick Normal (Normal); Ketone-Dipstick Negative (Negative); Leukocyte Esterase-Dipstick Negative /ul (Negative); Nitrite-Dipstick Negative (Negative); Occult Blood-Urine Negative /ul (Negative); Protein-Dipstick Negative (Negative); Urine Bilirubin Dipstick Negative (Negative); Urine Clarity Clear (Clear); Urine Urobilinogen Normal (Normal)
[2022-01-21 12:00] LABS: Absolute Neutrophil Count 3.4 X10^3/uL (2.0-7.7); Basophil# 0.05 X10^3/uL; Basophil% 0.7 % (0-1); Eosinophil# 0.14 X10^3/uL; Hematocrit 50.6 % (40-54); Hemoglobin 16.9 g/dL (13.0-16.5); Lymphocyte % 39.2 % (19-41); Mean Corp Hgb Conc 33.4 g/dL (32-36); Mean Corpuscular Hgb 30.6 pg (27.0-32.0); Mean Corpuscular Volume 91.7 fL (80-94); Mean Platelet Vol. 9.3 fl (6.2-12.0); Monocyte# 0.63 X10^3/uL; Monocyte% 9.2 % (0-10); NRBC Flagged by Analyzer 0 % (0-5); Neutrophil # 3.35 X10^3/uL (2.7-7.7); Neutrophil % 48.8 % (47-70); Platelet Count 258 K/mm3 (150-450); RBC Distribution Width CV 13.2 % (11.6-14.6); RBC Distribution Width SD 45.1 fl (35.1-43.9); Red Blood Count 5.52 M/mm3 (4.6-6.2); White Blood Count 6.9 K/mm3 (4.4-11.0)
[2022-01-21 12:18] LABS: ALB/GLOB Ratio 1.1 RATIO (0.9-2.4); AST(SGOT) 14 U/L (15-37); Alanine Aminotransfer ALT/SGPT 31 U/L (16-61); Albumin, Serum 4.3 g/dL (3.2-5.0); Alkaline Phosphatase 51 U/L (45-117); Anion Gap 7 (5-15); BUN 15 mg/dL (7-18); Calcium,Total 9.1 mg/dL (8.5-10.1); Chloride 102 mmol/L (98-107); Cholesterol 195 mg/dL (200); EST Glomerular Filtration Rate 84 mL/min (>60); Est Glom Filt Rate - Afr Amer 101 mL/min (>60); Globulin 3.8 g/dL (2.2-4.2); Glucose 94 mg/dL (74-106); High Density Lipoprotein 49 mg/dL; Potassium 3.2 mmol/L (3.5-5.1); Protein, Total 8.1 g/dL (6.4-8.2); Sodium Level 139 mmol/L (136-145); Triglycerides 159 mg/dL; Very Low Density Lipoprotein 32 mg/dL (5-40)
== END | disposition home or self-care (01) ==
LOC: LAB 11:17
PROVIDERS: PCP Family Medicine; Visit Provider Family Medicine
DX: Z00.00 Encounter for general adult medical examination without abnormal findings (principal); Z12.5 Encounter for screening for malignant neoplasm of prostate; R31.29 Other microscopic hematuria
CPT/HCPCS: 36415; 80053; 80061; 81002; 84153; 85025; G0103

== ENCOUNTER → 2023-09-24 | Outpatient (CLI) | payer BC, SELFPAY ==
[2023-09-24 12:21] LABS: Absolute Lymphocyte Count 2.21 X10^3/uL (0.83-4.51); Absolute Neutrophil Count 3.7 X10^3/uL (2.0-7.7); Basophil# 0.05 X10^3/uL; Basophil% 0.7 % (0-1); Eosinophils% 2.9 % (0-5); Hematocrit 51.1 % (40-54); Hemoglobin 16.7 g/dL (13.0-16.5); Lymphocyte # 2.21 X10^3/ul (0.83-4.51); Lymphocyte % 32.3 % (19-41); Mean Corp Hgb Conc 32.7 g/dL (32-36); Mean Corpuscular Hgb 30.4 pg (27.0-32.0); Mean Corpuscular Volume 93.1 fL (80-94); Mean Platelet Vol. 9.6 fl (6.2-12.0); Monocyte# 0.65 X10^3/uL; Monocyte% 9.5 % (0-10); NRBC Flagged by Analyzer 0 % (0-5); Neutrophil # 3.69 X10^3/uL (2.7-7.7); Platelet Count 265 K/mm3 (150-450); RBC Distribution Width CV 13.2 % (11.6-14.6); Red Blood Count 5.49 M/mm3 (4.6-6.2); White Blood Count 6.8 K/mm3 (4.4-11.0)
[2023-09-24 13:16] LABS: AST(SGOT) 20 U/L (15-37); Alanine Aminotransfer ALT/SGPT 41 U/L (16-61); Albumin, Serum 4.1 g/dL (3.2-5.0); Alkaline Phosphatase 56 U/L (45-117); Anion Gap 4 (5-15); BUN 16 mg/dL (7-18); BUN/Creat Ratio 15.2 RATIO (10-20); Calcium,Total 9.4 mg/dL (8.5-10.1); Chloride 103 mmol/L (98-107); Cholesterol 234 mg/dL (200); Creatinine, Serum 1.05 mg/dL (0.70-1.30); EST Glomerular Filtration Rate 79 mL/min (>60); Est Glom Filt Rate - Afr Amer 95 mL/min (>60); Glucose 101 mg/dL (74-106); High Density Lipoprotein 46 mg/dL; PSA,Total - Annual Screen 0.86 ng/mL (0.00-4.00); Potassium 3.6 mmol/L (3.5-5.1); Protein, Total 8.1 g/dL (6.4-8.2); Sodium Level 136 mmol/L (136-145); Triglycerides 218 mg/dL; Very Low Density Lipoprotein 44 mg/dL (5-40)
== END | disposition home or self-care (01) ==
LOC: BIMLAB 10:00 → BFHLAB 11:05
PROVIDERS: PCP Family Medicine; Visit Provider Family Medicine
DX: Z00.00 Encounter for general adult medical examination without abnormal findings (principal); Z12.5 Encounter for screening for malignant neoplasm of prostate
CPT/HCPCS: 36415; 80053; 80061; 84153; 85025; G0103

== ENCOUNTER → 2024-03-07 | Outpatient (CLI) | payer BC, SELFPAY | END | disposition home or self-care (01) | LOC: SL 09:39 | PROVIDERS: PCP Family Medicine; Visit Provider Nurse Practitioner Acute Care | DX: Z00.00 Encounter for general adult medical examination without abnormal findings (principal) ==

== ENCOUNTER 2024-05-10 07:09 | Day surgery (SDC) | payer BC, SELFPAY ==
[2024-05-10] VITALS (7 sets, daily range): BP systolic 117–122; BP diastolic 82–88; PULSE 78–83; RESP 16; TEMP 36.6–36.7; O2SAT 97–98; BMI 31.0
--- NOTE | 2024-05-10 07:21 | HP.PCM_ITS ---
[facility] - General General Date of Service: 05/10/24 HPI Narrative MARY JANE MEZA, is a 53 M who presents for colonoscopy due to history of colon polyps?tubular adenomas last colonoscopy was 02/05/2021. Patient does have a family history of colon cancer father is at age 70-diagnosed with met astatic stage IV at 68 and paternal grandfather at age 55. Siblings have had polyps. Patient has bowel movements daily denies any blood. Patient denies any chronic abdominal pain/nausea/vomiting/reflux. Patient is on Ozempic which he held. [facility] Medical History (Updated 05/10/24 @ 07:[address] Aubree Riddle MD) Arthritis History of steroid therapy Back pain Vertigo History of pain when walking Family history of colon cancer in father History of ulceration Gastric reflux Non-smoker BiPAP (biphasic positive airway pressure) dependence History of stress test Hypertension Nocturnal hypoxia Carpal tunnel syndrome, bilateral Claustrophobia GERD (gastroesophageal reflux disease) RONAK (obstructive sleep apnea) TMJ syndrome Essential (primary) hypertension Home Medications ?Medication ?Instructions ?Recorded ?Last Taken ?Type amlodipine 5 mg tablet 5 mg PO DAILY 07/20/18 02/05/21 04:30 History hydrochlorothiazide 50 mg tablet 50 mg PO DAILY 11/09/19 02/04/21 06:30 History gabapentin 100 mg capsule 100 mg PO 4X/DAY PRN pain 02/24/24 Unknown History meloxicam 7.5 mg tablet 7.5 mg PO DAILY PRN pain 03/31/24 Unknown History tirzepatide (weight loss) 7.5 7.5 mg subcut SA 05/08/24 04/29/24 History mg/0.5 mL subcutaneous pen injector (Zepbound) Allergy/AdvReac Type Severity Reaction Status Date / Time lisinopril AdvReac Mild Cough Verified 05/08/24 15:17 Penicillins AdvReac Mild Itching Verified 05/08/24 15:17 Family History (Updated 03/31/24 @ 11:36 by Marija Poe) Father Colon cancer at 70yrs Grandfather Colon cancer, Onset Age: 50 at 55yrs Grandmother COPD (chronic obstructive pulmonary disease) Brother Colon polyp Sister Colon polyp Surgical History (Updated 05/08/24 @ 15:27 by Anni Castorena) History of carpal tunnel surgery of right wrist History of carpal tunnel surgery of left wrist Hx of colonoscopy with polypectomy History of detached retina repair Hx of colonoscopy History of eye surgery History of dental surgery History of tonsillectomy Social History (Updated 03/31/24 @ 11:37 by Marija Poe) household members: spouse current occupational status: employed current occupation: [employer] Smoking Status: Never smoker alcohol intake: never substance use type: does not use Past Medical/Surgical History Planned Operation Planned Operative Procedure(s): CSCOPE OA Previous Hospitalizations/Surgeries HX Hospitalizations: No Any Problems With Anesthesia: No You/Your Family Experience Fever (Hyperthermia) With Anes: No Cholinesterase deficiency: No Cardiovascular Hx Hypertension: Yes (CONTROLLED WITH MED) Respiratory Hx Sleep Apnea: Yes CPAP: No BIPAP: Yes Hx Respiratory Tract Infection/Cold (presently): No Result (for STOP score): Positive Smoking Status: Never smoker Neurological Does patient have nerve stimulator: No Reproduction : No Miscellaneous Recent Exposure to Contagious Disease: No Allergies lisinopril Adverse Reaction (Mild, Verified 05/08/24 15:17) Cough Penicillins Adverse Reaction (Mild, Verified 05/08/24 15:17) Itching Discharge Is Pt Admitted From a Half-Way, or a Fdc: No After D/C, Where Do you Plan to Go: Return Home Physical Exam Const alert, oriented x3 and no apparent distress HEENT normocephalic and head/scalp atraumatic Resp normal respiratory effort Cardio regular rate GI soft to palpation and non-tender; Negative for non-distended Palpation: Negative for guarding Extremity no clubbing, cyanosis or edema Skin no rashes or lesions noted Neuro CN's II-XII intact bilaterally Psych mental status grossly normal Assessment & Plan Assessment/Plan (1) Hx of colonic polyp: (2) Family history of colon cancer in father: Surgery Risks - Colonoscopy I discussed with the patient the risks of the procedure: Yes Risks Include but are not Limited To: Risks include but are not limited to: Bleeding, perforation requiring further surgery, inability to complete colonoscopy requiring barium enema.
[2024-05-10] MEDS: Lactated Ringers 1,000 ML 15 ML IV (08:00)
--- NOTE | 2024-05-10 08:06 | PRE.ANES_ITS ---
ASA Classification* ASA Classification ASA Classification: 2 Assessment & Plan Anesthesia* Anesthesia Assessment Anesthesia Assessment: Discussed sedation and/or anesthesia options, risks, benefits, and alternatives with patient/parents/legal guardian/POA. Questions invited. The patient/parents/legal guardian/POA seems to understand and agrees to proceed with anesthesia plan. Reviewed the physical assessment, medical history, allergy history and patient home medications list prior to surgery/procedure/anesthetic and documented any changes. Performed airway and anesthesia risk assessments. Anesthesia Type Anesthesia Type: MAC Anesthesia Focused Assessment* Temperature: 98 F Pulse Rate: 83 Blood Pressure: 122/82 Respiratory Rate: 16 Pulse Ox: 98 Airway Assessment Mouth opens: >3 cm Mallampati Score: II Focused Labs Anesthesia Preop lab: CBC WBC 6.8 K/mm3 (4.4-11.0) 09/24/23 10:01 RBC 5.49 M/mm3 (4.6-6.2) 09/24/23 10:01 Hgb 16.7 g/dL (13.0-16.5) H 09/24/23 10:01 Hct 51.1 % (40-54) 09/24/23 10:01 Plt Count 265 K/mm3 (150-450) 09/24/23 10:01 CHEMISTRY Potassium 3.6 mmol/L (3.5-5.1) 09/24/23 10:01 Sodium 136 mmol/L (136-145) 09/24/23 10:01 BUN 16 mg/dL (7-18) 09/24/23 10:01 Creatinine 1.05 mg/dL (0.70-1.30) 09/24/23 10:01 Glucose 101 mg/dL (74-106) 09/24/23 10:01 COAG Pre-Assessment Diagnosis/Proposed Procedure Planned Operative Procedure(s): CSCOPE OA Anesthesia History Anesthesia History - integrated marketing manager: Anesthesia History - integrated marketing manager Hx Hospitalization No 05/10/24 07:24 Any Problems With Anesthesia No 05/10/24 07:24 Cholinesterase deficiency No 05/10/24 07:24 You/Your Family Experience No 05/10/24 07:24 fever (hyperthermia) with Relationship Recent Exposure to Contagious No 05/10/24 07:38 Disease Does patient have nerve No 05/10/24 07:24 stimulator Patient instructed to have device shut off --Does patient have Pacemaker No 05/10/24 07:38 or ICD? When Was Last Pacemaker Check QUESTION #4 FULL TEXT: You/Your Family Experience fever (hyperthermia) with Anesthesia Last Oral Intake Last Oral intake: Last Oral Intake NPO since 05:15 05/10/24 07:38 Meds taken in AM with sips of Yes 05/10/24 07:38 water? Meds patient instructed to take am of surgery PONV PONV - integrated marketing manager: PONV - integrated marketing manager Female No 05/08/24 15:19 HX of Motion Sickness No 05/08/24 15:19 HX of N/V After Surgery No 05/08/24 15:19 Non-Smoker Yes 05/08/24 15:19 Duration of Surgery greater No 05/08/24 15:19 than 60 minutes Number of Risk Factors 1 05/08/24 15:19 PONV Score Low Risk 05/08/24 15:19 Height & Weight Height & Weight: Anesthesia: Height & Weight Height 5 ft 11 in 05/10/24 07:38 Weight: 101 kg 05/10/24 07:38 Body Mass Index (BMI) 31.0 05/10/24 07:38 Respiratory Assessment Respiratory Assessment - integrated marketing manager: Respiratory Tract Infection Hx - integrated marketing manager Hx Respiratory Tract Infection No 05/10/24 07:24 STOP Sleep Apnea STOP Sleep Apnea - integrated marketing manager: STOP Sleep Apnea - integrated marketing manager Hx Hypertension Yes: CONTROLLED WITH MED 05/10/24 07:24 Hx Sleep Apnea Yes 05/10/24 07:24 CPAP No 05/10/24 07:24 BIPAP Yes 05/10/24 07:24 Do you snore loudly (louder than talking or can be heard Do you often feel tired/ fatigued/ sleepy during daytime? Has anyone observed you stop breathing during sleep? STOP Results Positive 05/10/24 07:24 QUESTION #5 FULL TEXT : Do you snore loudly (louder than talking or can be heard through closed doors)? Tobacco Use History Tobacco Use History - integrated marketing manager: Tobacco Use History - integrated marketing manager Tobacco Use Smoking Status Never smoker 05/10/24 07:24 Hx Tobacco Use No 05/08/24 15:19 Years Smoking Packs Smoked per Day Smoking Cessation Date was within the last 15 years Hx Smoking Cessation Date Hx Smoking Cessation Counseling Hematologic Medial History Hematologic Hx - integrated marketing manager: Hematologic Medical Hx - training and documentation specialist Hx of Blood Transfusion No 05/08/24 15:19 Hx of Transfusion in last 3 No 05/08/24 15:19 Months Date of Last Transfusion (if within last 3 months) Ever experience any problems No 05/08/24 15:19 with transfusion(s)? Specify any problems Hx of Preganancy in last 3 N/A 05/08/24 15:19 Months Nurse Filling Out Transfusion DSCHRIBER 05/08/24 15:19 & Questions: Date: 05/08/24 05/08/24 15:19 Time: 15:20 05/08/24 15:19 Patient unable to answer at this time (ie. confused, unrespo /Reproduction History /Reproductive History - integrated marketing manager: /Reproductive Hx- integrated marketing manager Hx Now No 05/10/24 07:24 Gestational Age (in weeks): EDC: Hx Hx Para Hx Section SAB No 05/08/24 15:19 Active Medications Active Medications: Current Medications Generic Name Dose Route Start Last Admin Trade Name Freq PRN Reason Stop Dose Admin Lactated Ringer's 1,000 mls @ 15 mls/hr 05/10/24 07:30 05/10/24 08:00 IV 15 mls/hr .Q48H KIM Administration PFSH Medical History Arthritis History of steroid therapy Back pain Vertigo History of pain when walking Family history of colon cancer in father History of ulceration Gastric reflux Non-smoker BiPAP (biphasic positive airway pressure) dependence History of stress test Hypertension Nocturnal hypoxia Carpal tunnel syndrome, bilateral Claustrophobia GERD (gastroesophageal reflux disease) RONAK (obstructive sleep apnea) TMJ syndrome Essential (primary) hypertension Home Medications ?Medication ?Instructions ?Recorded ?Last Taken ?Type amlodipine 5 mg tablet 5 mg PO DAILY 07/20/18 05/10/24 05:15 History hydrochlorothiazide 50 mg tablet 50 mg PO DAILY 11/09/19 02/04/21 06:30 History gabapentin 100 mg capsule 100 mg PO 4X/DAY PRN pain 02/24/24 Unknown History meloxicam 7.5 mg tablet 7.5 mg PO DAILY PRN pain 03/31/24 Unknown History tirzepatide (weight loss) 7.5 7.5 mg subcut SA 05/08/24 04/29/24 History mg/0.5 mL subcutaneous pen injector (Zepbound) Allergy/AdvReac Type Severity Reaction Status Date / Time lisinopril AdvReac Mild Cough Verified 05/10/24 07:35 Penicillins AdvReac Mild Itching Verified 05/10/24 07:35 Family History Father Colon cancer at 70yrs Grandfather Colon cancer, Onset Age: 50 at 55yrs Grandmother COPD (chronic obstructive pulmonary disease) Brother Colon polyp Sister Colon polyp Surgical History History of carpal tunnel surgery of right wrist History of carpal tunnel surgery of left wrist Hx of colonoscopy with polypectomy History of detached retina repair Hx of colonoscopy History of eye surgery History of dental surgery History of tonsillectomy Social History household members: spouse current occupational status: employed current occupation: [employer] Smoking Status: Never smoker alcohol intake: never substance use type: does not use Review of Systems (Anesthesia) ROS Narrative System reviewed and no additional complaints, except as documented.
--- NOTE | 2024-05-10 08:30 | COLBX_PTH ---
PATIENT: MARY JANE MEZA LOC: EN U#:[id number] AGE/SX: 53/M ROOM: RE05/10/[address]: Dr. Aubree Riddle MD : 1970 BED: DIS: 05/10/2024 SPEC #: [id number] RECD: 05/10/24 11:44 STATUS: DONNA LORI #: [id number] PETR: 05/10/24 08:[address]: Aubree Riddle DEPT: SURGICAL PATHOLOGY RECD BY: Madan Enamorado ENTERED: 05/10/24 12:06 SP TYPE: COLON BX LAURO DR: Dr. Chang Cornell DO Tissues: Sigmoid colon biopsy Procedures: Surgery Specimen Level IV HEADER OPERATION: Colonoscopy, polypectomy PRE-OP DIAGNOSIS: History of colonic polyps TISSUE SUBMITTED: Sigmoid colon polyp MICROSCOPIC DIAGNOSIS Sigmoid colon polyp, biopsy: Fragments of hyperplastic polyp. AM/mr 05/11/2024 MICROSCOPIC DESCRIPTION Slides are reviewed. GROSS DESCRIPTION Received in fixative is one container labeled with the patient's name and designated Sigmoid colon polyp. The specimen consists of multiple irregular fragments of light stevenson soft tissue that in aggregate measure 1.0 x 0.3 x 0.1 cm. The specimen is totally submitted in one cassette. 05/10/2024 TC:5 CPT:25250
--- NOTE | 2024-05-10 09:37 | OP.CCLET_ITS ---
05/10/2024 Chang Cornell [address] [place] [address] Re : Colonoscopy procedure for Sander Charlton Dear Dr. Cornell This procedure was performed on Friday, May 10, 2024. My impressions and recommendations are as follows: Impressions : - Two less than 5 mm polyps in the sigmoid colon, removed with a hot snare. Resected and retrieved. - The examination was otherwise normal. Recommendations : - Discharge patient to home. - Resume previous diet. - Continue present medications. - Await pathology results. - Repeat colonoscopy in 3 years for surveillance based on pathology results. My findings are described in the full procedure note, which is enclosed. If I can be of further assistance, please feel free to contact me at Doctor phone number(s): , Work: . Sincerely, MD Aubree Castle MD 05/10/2024 9:36:43 AM This report has been signed electronically.
--- NOTE | 2024-05-10 09:37 | OP.COLON_ITS ---
Patient Name: Sander Charlton Procedure Date: 05/10/2024 9:09 AM Date of : 1970 Age: 53 Procedure: Colonoscopy Indications: Colon cancer screening in patient at increased risk: Colorectal cancer in father, High risk colon cancer surveillance: Personal history of colonic polyps Providers: Aubree Riddle MD Referring MD: Chang Cornell Medicines: Monitored Anesthesia Care Patient Profile: This is a 53 year old male. Last Colonoscopy: January 2021. Complications: No immediate complications. Procedure: Pre-Anesthesia Assessment: - Prior to the procedure, a History and Physical was performed, and patient medications and allergies were reviewed. The patient's tolerance of previous anesthesia was also reviewed. The risks and benefits of the procedure and the sedation options and risks were discussed with the patient. All questions were answered, and informed consent was obtained. Prior Anticoagulants: The patient has taken no anticoagulant or antiplatelet agents. ASA Grade Assessment: Per anesthesia. After reviewing the risks and benefits, the patient was deemed in satisfactory condition to undergo the procedure. After I obtained informed consent, the scope was passed under direct vision. Throughout the procedure, the patient's blood pressure, pulse, and oxygen saturations were monitored continuously. The Colonoscope was introduced through the anus and advanced to the cecum, identified by the appendiceal orifice, ileocecal valve and palpation. The colonoscopy was performed without difficulty. The patient tolerated the procedure well. The quality of the bowel preparation was good. Scope In: 9:19:03 AM Scope Withdrawal Time 0 hours 7 minutes 57 seconds Scope Out: 9:30:42 AM Total Procedure Duration Time 0 hours 11 minutes 39 seconds Findings: The perianal and digital rectal examinations were normal. Two sessile polyps were found in the sigmoid colon. The polyps were less than 5 mm in size. These polyps were removed with a hot snare. Resection and retrieval were complete. The exam was otherwise without abnormality. Impression: - Two less than 5 mm polyps in the sigmoid colon, removed with a hot snare. Resected and retrieved. - The examination was otherwise normal. Recommendation: - Discharge patient to home. - Resume previous diet. - Continue present medications. - Await pathology results. - Repeat colonoscopy in 3 years for surveillance based on pathology results. Procedure Code(s): --- Professional --- 31164, PT, Colonoscopy, flexible; with removal of tumor(s), polyp(s), or other lesion(s) by snare technique Diagnosis Code(s): --- Professional --- Z80.0, Family history of malignant neoplasm of digestive organs Z86.010, Personal history of colonic polyps D12.5, Benign neoplasm of sigmoid colon CPT copyright 2021 [employer]. All rights reserved. The codes documented in this report are preliminary and upon tubular riveter review may be revised to meet current compliance requirements. MD Aubree Castle MD 05/10/2024 9:36:43 AM This report has been signed electronically. Number of Addenda: 0 Note Initiated On: 05/10/2024 9:09 AM
--- NOTE | 2024-05-10 09:40 | PCM.POST.ANE ---
Anesthesia: Postop Eval I Current Vital Signs Temperature: 98.1 F Pulse Rate: 79 Blood Pressure: 120/85 Respiratory Rate: 16 Pulse Ox: 97 Oxygen Delivery Method: Room Air Assessment Airway patent: Yes Spontaneous unlabored respirations: Yes Mental status: Awake and Calm nausea: No Vomiting: No Anesthesia Complication: No Fluid Hydration Crystalloid volume administer (ml): 700 Total IV fluid infused: 700 Progress Note Anesthesia document: Postop Eval 1 completed: Yes
--- NOTE | 2024-05-10 12:32 | PCM.POSTANE2 ---
Anesthesia Postop Eval I Sum Postop Eval Completion status Anesthesia document: Postop Eval 1 completed: Yes Anesthesia Postop Eval I Summary Anesthesia Postop Eval I Summary: Anesthesia Postop Eval I: Assessment Summary Airway patent Yes 05/10/24 09:42 Spontaneous unlabored Yes 05/10/24 09:42 respirations Mental status Awake,Calm 05/10/24 09:42 nausea No 05/10/24 09:42 Vomiting No 05/10/24 09:42 Anesthesia Postop Eval I: Fluid Summary Crystalloid volume administer 700 05/10/24 09:42 (ml) Colloids volume administered ( ml) Blood Product volume administered (ml) Total IV fluid infused 700 05/10/24 09:42 Anesthesia Postop Eval I: Summary Notes Anesthesia Complication No 05/10/24 09:42 Anesthesia Complication Comment: Post-operative progress note Anesthesia: Postop Eval II Evaluation Mental status: Awake Pain Level: 0 nausea: No Vomiting: No
== END 2024-05-10 10:16 | disposition home or self-care (01) ==
LOC: EN 07:10 → AC 07:11
PROVIDERS: PCP Family Medicine; Referring Provider Family Medicine; Visit Provider Surgery
PROC: 0DJD8ZZ Inspection of Lower Intestinal Tract, Via Natural or Artificial Opening Endoscopic (ICD-10-PCS; CPT 45378; principal; 2024-05-10 08:25)
DX: Z12.11 Encounter for screening for malignant neoplasm of colon (principal); K63.5 Polyp of colon; I10 Essential (primary) hypertension; Z79.85 Long-term (current) use of injectable non-insulin antidiabetic drugs; Z80.0 Family history of malignant neoplasm of digestive organs; Z86.010 Personal history of colon polyps; G47.33 Obstructive sleep apnea (adult) (pediatric); Z99.81 Dependence on supplemental oxygen; Z79.899 Other long term (current) drug therapy
CPT/HCPCS: 45385; 88305; J7120; J2405

== ENCOUNTER 2024-07-14 07:35 | Emergency (ER) | payer BC, SELFPAY ==
[2024-07-14 07:36] VITALS: BP 146/109; PULSE 97; RESP 15; TEMP 36; O2SAT 98
[2024-07-14 07:52] VITALS: BMI 32.5
--- NOTE | 2024-07-14 08:45 | EDS_ITS ---
HPI History of Present Illness Chief Complaint: Laceration Narrative Narrative: Chief complaint and HPI: Facial laceration. 53-year-old male presents for evaluation of facial laceration. Patient states injury happened prior to arrival. He states that he was putting together [employer] furniture when it came up and hit him in the left face inferior to the eye. Bleeding is stopped. He denies any facial pain. Denies any headache, blurry vision, numbness/tingling, or injury elsewhere. Not on blood thinners. No LOC. Not up-to-date on tetanus. Review of systems: See HPI Medications: As listed on the chart Allergies: As listed on the chart PFSH: Per chart Vital signs: As listed on the chart. Reviewed. Physical exam: Gen: A&O x3, NAD Head: Normocephalic, atraumatic Eyes: No sclera icterus, conjunctiva clear, PERRL, EOMI, vision intact, 1.2 cm laceration to cheek inferior to the left eye with mild ecchymosis, gaping, no active bleeding or foreign body ENT: Moist mucous membranes, no swelling/lacerations/blood in the mouth or the nares, No nasal septal hematoma, no facial tenderness Neck: Trachea midline, No JVD, Nontender CV: Regular rate Resp: Nonlabored respiration Musc: Full ROM, no deformity Skin: Warm Neuro: Alert, oriented, grossly intact, sensation intact, GCS 15 Psych: Cooperative, appropriate mood and affect [facility] Medical History (Reviewed 05/18/24 @ 15:30 by Julianne Almaraz CUSTOM SHOE DESIGNER AND MAKER, [employer] SHOE DESIGNER [employer]KER-[employer]) Arthritis History of steroid therapy Back pain Vertigo History of pain when walking Family history of colon cancer in father History of ulceration Gastric reflux Non-smoker BiPAP (biphasic positive airway pressure) dependence History of stress test Hypertension Nocturnal hypoxia Carpal tunnel syndrome, bilateral Claustrophobia GERD (gastroesophageal reflux disease) RONAK (obstructive sleep apnea) TMJ syndrome Essential (primary) hypertension Home Medications ?Medication ?Instructions ?Recorded ?Last Taken ?Type amlodipine 5 mg tablet 5 mg PO DAILY 07/20/18 05/10/24 05:15 History hydrochlorothiazide 50 mg tablet 50 mg PO DAILY 11/09/19 02/04/21 06:30 History gabapentin 100 mg capsule 100 mg PO 4X/DAY PRN pain 02/24/24 Unknown History meloxicam 7.5 mg tablet 7.5 mg PO DAILY PRN pain 03/31/24 Unknown History tirzepatide (weight loss) 7.5 7.5 mg subcut SA 05/08/24 04/29/24 History mg/0.5 mL subcutaneous pen injector (Zepbound) Allergy/AdvReac Type Severity Reaction Status Date / Time lisinopril AdvReac Mild Cough Verified 07/14/24 07:38 Penicillins AdvReac Mild Itching Verified 07/14/24 07:38 Family History (Reviewed 05/18/24 @ 15:30 by Julianne Almaraz CUSTOM SHOE DESIGNER [employer] MAKER, [employer] SHOE DESIGNER [employer]KER-[employer]) Father Colon cancer at 70yrs Grandfather Colon cancer, Onset Age: 50 at 55yrs Grandmother COPD (chronic obstructive pulmonary disease) Brother Colon polyp Sister Colon polyp Surgical History (Reviewed 05/18/24 @ 15:30 by Julianne Almaraz CUSTOM SHOE DESIGNER AND MAKER, CUSTOM SHOE DESIGNER AND MAKER-C) History of carpal tunnel surgery of right wrist History of carpal tunnel surgery of left wrist Hx of colonoscopy with polypectomy History of detached retina repair Hx of colonoscopy History of eye surgery History of dental surgery History of tonsillectomy Social History household members: spouse current occupational status: employed current occupation: [employer] Smoking Status: Never smoker alcohol intake: never substance use type: does not use EXAM Physical Exam Const Vital Signs: 07/14/24 07:36 Temperature 96.8 F L Temperature Source Temporal Pulse Rate 97 Respiratory Rate 15 Blood Pressure 146/109 H Blood Pressure Mean 121 Pulse Ox 98 Oxygen Delivery Method Room Air MDM MDM MDM Narrative Medical decision making narrative: 53-year-old male presents for evaluation of facial laceration. See physical exam findings. Laceration will need repaired. Laceration was repaired and patient tolerated this well. Patient was educated that the sutures need to be removed in 5 days. He was educated on monitoring for signs of infection. He wa s given appropriate care instructions. Tetanus updated. Patient stable discharge home. Laceration Repair Indication: Laceration Location: 1.2 cm left cheek/inferior to the eye laceration Consent:Risks, benefits, and alternatives discussed with patient and consent obtained Procedure: A time out was performed. The area was prepped and draped in the usual sterile fashion. Local anesthesia was achieved using 2 cc of 1% Lidocaine with epinephrine. The wound was copiously irrigated. 4 sutures were placed using 6-0 Ethilon in an interrupted fashion. The estimated blood loss was minimal. The patient tolerated the procedure well without complications. Foreign Material: None Debridement: None Follow-up: Anticipatory guidance, as well as standard post-procedure care, was explained. Return precautions are given. Follow-up visit set for suture removal and evaluation of the laceration Impression: 1. 1.2 cm facial laceration, repaired Discharge Plan Triage Chief Complaint: Laceration ED Provider: Bairon Cisneros Dx/Rx/DC Orders Clinical Impression: Laceration of face Instructions: ED Laceration, All Closures Prescriptions: No Action amlodipine 5 mg tablet 5 mg PO DAILY hydrochlorothiazide 50 mg tablet 50 mg PO DAILY gabapentin 100 mg capsule 100 mg PO 4X/DAY PRN (Reason: pain) Patient Comments: up to 4x/day meloxicam 7.5 mg tablet 7.5 mg PO DAILY PRN (Reason: pain) Zepbound 7.5 mg/0.5 mL pen injector 7.5 mg subcut SA Primary Care Provider: Chang Cornell Referrals: Chang Cornell DO [Primary Care Provider] - 3-5 Days Activity Restrictions/Additional Instructions: Sutures need to be removed in 5 days. Monitor for signs of infection. Okay to shower in 24 hours. No patel, lakes, hot tubs, swimming pools until fully healed. Print Language: [place] Disposition Disposition: Home, Self Care
[2024-07-14] MEDS: Diphth,Pertuss(Acell),Tet Vac 0.5 ML Vial IM (08:51)
[2024-07-14] MEDS: Lidocaine 1% /Epi 1:100 (20ml) 20 ML Vial INFILT (08:51)
== END 2024-07-14 08:59 | disposition home or self-care (01) ==
PROVIDERS: Emergency Provider Surgery; PCP Family Medicine; Visit Provider Surgery
DX: S01.81XA Laceration without foreign body of other part of head, initial encounter (principal); I10 Essential (primary) hypertension; K21.9 Gastro-esophageal reflux disease without esophagitis; W26.8XXA Contact with other sharp object(s), not elsewhere classified, initial encounter; Z23 Encounter for immunization
CPT/HCPCS: 12011; 90471; 90715; 99282

== ENCOUNTER → 2025-07-02 | Outpatient (CLI) | payer BC, SELFPAY ==
[2025-07-02 09:18] LABS: Hematocrit 49.8 % (40-54); Hemoglobin 17.2 g/dL (13.0-16.5); Immature Granulocytes Count 0.090 X10^3/uL (0.0-0.0); Mean Corp Hgb Conc 34.5 g/dL (32-36); Mean Corpuscular Volume 89.9 fL (80-94); Mean Platelet Vol. 9.2 fl (6.2-12.0); NRBC Flagged by Analyzer 0 % (0-5); Platelet Count 249 K/mm3 (150-450); RBC Distribution Width CV 13.2 % (11.6-14.6); RBC Distribution Width SD 43.8 fl (35.1-43.9); Red Blood Count 5.54 M/mm3 (4.6-6.2); White Blood Count 6.4 K/mm3 (4.4-11.0)
[2025-07-02 10:16] LABS: AST(SGOT) 21 U/L (<=37); Alanine Aminotransfer ALT/SGPT 23 U/L (<=46); Albumin, Serum 4.5 g/dL (3.5-5.0); Alkaline Phosphatase 47 U/L (40-129); Anion Gap 10 (5-15); BUN 15 mg/dL (4-19); BUN/Creat Ratio 13.2 RATIO (10-20); Calcium,Total 9.4 mg/dL (7.6-11.0); Carbon Dioxide 29.0 mmol/L (21.0-32.0); Chloride 102 mmol/L (98-108); Cholesterol 187 mg/dL (<=200); Globulin 3.0 g/dL (2.2-4.2); Glucose 95 mg/dL (70-99); Low Density Lipoprotein Calc. 115 mg/dL; PSA,Total - Annual Screen 0.95 ng/mL (0.02-4.00); Potassium 4.1 mmol/L (3.3-5.1); Triglycerides 162 mg/dL; Very Low Density Lipoprotein 32 mg/dL (5-40); cholesterol:hdl ratio screen 4.34
== END | disposition home or self-care (01) ==
LOC: LAB.FUTURE 08:18 → LAB 08:19
PROVIDERS: PCP Family Medicine; Referring Provider Family Medicine; Visit Provider Family Medicine
DX: Z00.00 Encounter for general adult medical examination without abnormal findings (principal); Z12.5 Encounter for screening for malignant neoplasm of prostate; R53.83 Other fatigue
CPT/HCPCS: 36415; 80053; 80061; 84153; 84403; 85025; G0103